=== PATIENT | male | born 1945 | race Two or more races ===

== ENCOUNTER 2020-02-13 07:11 | Outpatient (CLI) | payer OTHER ==
[2020-02-13] MEDS ORDERED: NORVASC5 MG PO (10:32)
[2020-02-13] MEDS ORDERED: LIPITOR40 MG PO (10:33)
[2020-02-13] MEDS ORDERED: ZESTORETIC 20-1 EAC1 PO (10:33)
== END 2020-02-13 07:17 | disposition home or self-care (01) ==
LOC: RAD 07:11
PROVIDERS: ATTEND Surgery
DX: R19.4 Change in bowel habit (principal); D12.8 Benign neoplasm of rectum; D37.5 Neoplasm of uncertain behavior of rectum

== ENCOUNTER 2020-02-18 05:30 | Day surgery (SDC) | payer OTHER ==
[~2020-02-18 05:30] MED LIST: LIPITOR40 MG PO; NORVASC5 MG PO; ZESTORETIC 20-1 EAC1 PO
[2020-02-18] MEDS ORDERED: ULTRACET PO (08:24)
[2020-02-18] MEDS ORDERED: RECTICARE30 GM TOP (08:25)
== END 2020-02-18 13:45 | disposition home or self-care (01) ==
LOC: CIR.AMB 05:30
PROVIDERS: ATTEND Surgery
DX: D12.8 Benign neoplasm of rectum (principal)
CPT/HCPCS: 0184T; 64430